=== PATIENT | male | born 1960 | race Two or more races ===

== ENCOUNTER 2017-03-07 09:35 | Emergency (ER) | payer OTHER ==
[2017-03-07 10:03] VITALS: BP 145/74; PULSE 60; TEMP 98.2; BMI 28.3
--- NOTE | 2017-03-07 11:37 | PDOC ---
History of Present Illness - General Chief Complaint: Pain Stated Complaint: INJURY Time Seen by Provider: 03/07/17 10:06 History Source: Patient Exam Limitations: No Limitations - History of Present Illness Initial Comments: 03/07/17 11:32 CHIEF COMPLAINT: Inversion injury to the right ankle HISTORY OF PRESENT ILLNESS: Patient is a 56-year-old male, no significant medical history currently on no medication. Patient presents with inversion injury to right ankle. Able to ambulate, no edema, no deformity. Occurred: reports: just prior to arrival Severity: Yes: mild Lower Extremity Pain Location: right: ankle Method of Injury: Yes: twisted Modifying Factors: improves with: None Lower Ext. Injury Location - Specific Injury Location Ankle: right pain, right swelling Extremity Pain Location - Extremity Pain Location Extremity Pain Locations: right: ankle Past History - Past Medical History Allergies/Adverse Reactions: Allergies Allergy/AdvReac Type Severity Reaction Status Date / Time ranitidine HCl [From Zantac] Allergy Swelling Verified 03/07/17 10:03 Home Medications: Ambulatory Orders Amlodipine 10/Benazepril 20 [Lotrel (Nf)] 1 mg PO DAILY 05/30/12 Insulin Lispro Protamin/Lispro [Humalog Mix 50-50 Kwikpen] 45 unit SQ BID Metformin HCl [Glucophage -] 500 mg PO DAILY 05/30/12 Aspirin 81 mg PO DAILY 01/09/13 Colesevelam HCl [Welchol] 625 mg PO BID 01/09/13 Fenofibrate Nanocrystallized [Tricor] 145 mg PO DAILY 01/09/13 Fosinopril Sodium [Monopril] 50 mg PO DAILY 01/09/13 Vitamin B Complex 1 each PO DAILY 01/09/13 Naproxen [Naprosyn -] 500 mg PO BID #20 tablet 04/08/16 Anemia: No Asthma: No Cancer: No Cardiac Disorders: No CVA: No COPD: No CHF: No Dementia: Yes Diabetes: Yes (IDDM) GI Disorders: Yes (GERD) Disorders: No HTN: Yes Hypercholesterolemia: Yes Liver Disease: No Seizures: Yes (1993, 1995 DUE TO ALCOHOL DRINKING) Thyroid Disease: No - Surgical History Orthopedic Surgery: Yes (FRACTURED COLLAR BONE, FITO ANKLE FRACTURE) - Psycho/Social/Smoking Cessation Hx Anxiety: No Suicidal Ideation: No Smoking Status: Yes Smoking History: Former smoker Have you smoked in the past 12 months: No Number of Cigarettes Smoked Daily: 0 If you are a former smoker, when did you quit?: 15yrs Information on smoking cessation initiated: No 'Breaking Loose' booklet given: 01/09/13 Hx Alcohol Use: No Drug/Substance Use Hx: No Substance Use Type: None Hx Substance Use Treatment: No Review of Systems - Review of Systems Constitutional: No: Symptoms Reported Respiratory: No: Symptoms reported Cardiac (ROS): No: Symptoms Reported ABD/GI: No: Symptoms Reported : No: Symptoms Reported Musculoskeletal: Yes: Joint Pain. No: Joint Swelling, Muscle Pain, Muscle Weakness, Joint Stiffness, Other Integumentary: No: Symptoms Reported, Bruising, Erythema Neurological: No: Symptoms reported, Paresthesia, Tingling, Tremors Hematologic/Lymphatic: No: Symptoms Reported All Other Systems: Reviewed and Negative *Physical Exam - Vital Signs Last Vital Signs Temp Pulse Resp BP Pulse Ox 98.2 F 60 18 145/74 99 03/07/17 09:58 03/07/17 09:58 03/07/17 09:58 03/07/17 09:58 03/07/17 09:58 - Physical Exam General Appearance: Yes: Appropriately Dressed. No: Apparent Distress Respiratory/Chest: positive: Lungs Clear, Normal Breath Sounds Extremity: positive: Normal Capillary Refill, Normal Inspection, Normal Range of Motion, Tender (right lateral ankle). negative: Swelling, Erythema, Inflammation Integumentary: positive: Normal Color, Dry. negative: Erythema, Swelling, Ecchymosis, Bruising Neurologic: positive: Alert, Normal Mood/Affect ED Treatment Course - RADIOLOGY Radiology Studies Ordered: Category Date Time Status ANKLE-RIGHT [RAD] Stat Radiology 03/07/17 10:33 Completed Medical Decision Making - Medical Decision Making 03/07/17 11:36 A/P: Patient with inversion injury to right ankle. Xray no acute fracture dislocation Nick wrap placed on ice and elevate when at rest, Motrin for pain. orthopedics in one week if pain persists 03/07/17 14:27 *DC/Admit/Observation/Transfer Diagnosis at time of Disposition: Ankle sprain Qualifiers: Encounter type: initial encounter Involved ligament of ankle: unspecified ligament Laterality: right Qualified Code(s): S93.401A - Sprain of unspecified ligament of right ankle, initial encounter - Discharge Dispostion Disposition: HOME Condition at time of disposition: Good Admit: No - Referrals Referrals: Sha Morgan MD [Primary Care Provider] - - Patient Instructions Printed Discharge Instructions: DI for Ankle Sprain Additional Instructions: 1. Please return to the emergency department with any redness, swelling, increased pain, or any other concerns. 2. Keep nick wrap on. 3. Please follow up in the office of Dr. Yin within a week if pain persists. 4. No weightbearing 5. Ice and elevate when at rest. 6. Motrin for pain - Post Discharge Activity
== END 2017-03-07 11:48 | disposition home or self-care (01) ==
LOC: JERFT 09:35
DX: S93.401A Sprain of unspecified ligament of right ankle, initial encounter (principal); X50.1XXA Overexertion from prolonged static or awkward postures, initial encounter; Y93.89 Activity, other specified; Y92.89 Other specified places as the place of occurrence of the external cause; I10 Essential (primary) hypertension; E11.9 Type 2 diabetes mellitus without complications; E78.00 Pure hypercholesterolemia, unspecified; Z86.69 Personal history of other diseases of the nervous system and sense organs
CPT/HCPCS: 73610-TC-RT; 99281-25

== ENCOUNTER 2017-08-18 09:35 | Emergency (ER) | payer OTHER ==
[2017-08-18 09:55] VITALS: BP 138/74; PULSE 60; TEMP 98.6; BMI 26.1
[2017-08-18] MEDS ORDERED: KETOROLAC TROMETHAMINE 60 MG/2 ML VIAL IM ONE (10:32)
--- NOTE | 2017-08-18 10:39 | PDOC ---
History of Present Illness - General Chief Complaint: Back Pain Stated Complaint: BACK PAIN Time Seen by Provider: 08/18/17 10:22 History Source: Patient Exam Limitations: No Limitations - History of Present Illness Initial Comments: 08/18/17 10:32 57 yr male states he pulled his low back this AM shoveling snow. Pt denies abd pain denies history of back injury, no urine or bowel dysfucntion. Pt is ambualtiry steady gait no distress. Occurred: reports: this morning Severity: reports: moderate Pain Location: reports: back Past History - Past Medical History Allergies/Adverse Reactions: Allergies Allergy/AdvReac Type Severity Reaction Status Date / Time ranitidine HCl [From Zantac] Allergy Swelling Verified 08/18/17 09:50 Home Medications: Ambulatory Orders Amlodipine 10/Benazepril 20 [Lotrel (Nf)] 1 mg PO DAILY 05/30/12 Insulin Lispro Protamin/Lispro [Humalog Mix 50-50 Kwikpen] 45 unit SQ BID Metformin HCl [Glucophage -] 500 mg PO DAILY 05/30/12 Aspirin 81 mg PO DAILY 01/09/13 Colesevelam HCl [Welchol] 625 mg PO BID 01/09/13 Fenofibrate Nanocrystallized [Tricor] 145 mg PO DAILY 01/09/13 Fosinopril Sodium [Monopril] 50 mg PO DAILY 01/09/13 Vitamin B Complex 1 each PO DAILY 01/09/13 Cyclobenzaprine HCl [Flexeril -] 10 mg PO TID PRN #21 tablet 08/18/17 Ibuprofen 800 mg PO TID PRN #21 tablet 08/18/17 Lidocaine 5% Patch [Lidoderm -] 1 patch TP DAILY #4 patch 08/18/17 Anemia: No Asthma: No Cancer: No Cardiac Disorders: No CVA: No COPD: No CHF: No Dementia: Yes Diabetes: Yes (IDDM) GI Disorders: Yes (GERD) Disorders: No HTN: Yes Hypercholesterolemia: Yes Liver Disease: No Seizures: Yes (1993, 1995 DUE TO ALCOHOL DRINKING) Thyroid Disease: No - Surgical History Orthopedic Surgery: Yes (FRACTURED COLLAR BONE, FITO ANKLE FRACTURE) - Suicide/Smoking/Psychosocial Hx Smoking Status: Yes Smoking History: Former smoker Have you smoked in the past 12 months: No Number of Cigarettes Smoked Daily: 0 If you are a former smoker, when did you quit?: 15yrs Information on smoking cessation initiated: No 'Breaking Loose' booklet given: 01/09/13 Hx Alcohol Use: No Drug/Substance Use Hx: No Substance Use Type: None Hx Substance Use Treatment: No Trauma Specific PMHX - Complaint Specific PMHX Back Injury: No Neck Injury: No *Physical Exam - Vital Signs Last Vital Signs Temp Pulse Resp BP Pulse Ox 98.6 F 60 19 138/74 98 08/18/17 09:51 08/18/17 09:51 08/18/17 09:51 08/18/17 09:51 08/18/17 09:51 - Physical Exam General Appearance: Yes: Nourished, Appropriately Dressed HEENT: positive: EOMI, ARISTIDES, Normal ENT Inspection, TMs Normal, Pharynx Normal Neck: positive: Supple Respiratory/Chest: positive: Lungs Clear, Normal Breath Sounds Cardiovascular: positive: Regular Rhythm, Regular Rate Gastrointestinal/Abdominal: positive: Normal Bowel Sounds, Soft. negative: Tender Rectal Exam: positive: deferred Lymphatic: negative: Adenopathy Musculoskeletal: positive: Normal Inspection, Other (soft tissue paralumbar tender to touch and with movement, no rash ). negative: Decreased Range of Motion, Muscle Spasm, Vertebral Tenderness Extremity: positive: Normal Capillary Refill, Normal Inspection, Normal Range of Motion Integumentary: positive: Normal Color, Dry, Warm Neurologic: positive: Fully Oriented, Alert, Normal Mood/Affect, Normal Response , Motor Strength 5/5, Other (neg SLR bilateraly) Medical Decision Making - Medical Decision Making 08/18/17 11:00 cc: acute low back pain while shoveling this am pain reproduced with movement, bending forward and sitting makes it worse no saddle anesthesia, neg urine or bowel incontinence will give toradol now dc home with strict follow up with the orthopedist and PMD flexeril and ibuproifen for pain lidocaine patch prn pt agrees with plan of care all questions asked and answered at discharge 08/18/17 16:42 *DC/Admit/Observation/Transfer Diagnosis at time of Disposition: Back pain due to injury - Discharge Dispostion Disposition: HOME Condition at time of disposition: Good - Prescriptions Prescriptions: Cyclobenzaprine HCl [Flexeril -] 10 mg PO TID PRN #21 tablet PRN Reason: Back Pain Ibuprofen 800 mg PO TID PRN #21 tablet PRN Reason: Back Pain Lidocaine 5% Patch [Lidoderm -] 1 patch TP DAILY #4 patch - Referrals Referrals: Parth Perry MD [Primary Care Provider] - Chapin Yin MD [Staff Physician] - - Patient Instructions Additional Instructions: follow with the orthopedist next week for follow up if symptoms continue or woren please make a follow up appointment with your primary care in 1-3 days take the medciations as prescribed no heavy lifting or shoveling RETURN to ER for any worsening symptoms - Post Discharge Activity
[2017-08-18] MEDS ORDERED: DEXAMETHASONE SOD PHOSPHATE 10 MG/1 ML VIAL IM ONE (10:58)
== END 2017-08-18 11:31 | disposition home or self-care (01) ==
LOC: JERFT 09:35
PROC: 3E0233Z Introduction of Anti-inflammatory into Muscle, Percutaneous Approach (ICD-10-PCS; principal; 2017-08-18)
DX: M54.5 Low back pain (principal); X50.0XXA Overexertion from strenuous movement or load, initial encounter; Y93.H1 Activity, digging, shoveling and raking; Y92.414 Local residential or business street as the place of occurrence of the external cause; E11.9 Type 2 diabetes mellitus without complications; Z79.4 Long term (current) use of insulin; Z79.84 Long term (current) use of oral hypoglycemic drugs; I10 Essential (primary) hypertension; E78.00 Pure hypercholesterolemia, unspecified
CPT/HCPCS: 99281-25

== ENCOUNTER 2018-05-11 12:28 | Emergency (ER) | payer OTHER ==
[2018-05-11 12:37] VITALS: BP 139/63; PULSE 65; TEMP 97.8; BMI 28.3
[2018-05-11] MEDS ORDERED: ACETAMINOPHEN 325 MG TABLET (FP) PO ONE (13:09)
--- NOTE | 2018-05-11 13:10 | PDOC ---
History of Present Illness - General Chief Complaint: Injury Stated Complaint: INJURY Time Seen by Provider: 05/11/18 13:01 History Source: Patient Exam Limitations: No Limitations Past History - Travel Traveled outside of the country in the last 30 days: No Close contact w/someone who was outside of country & ill: No - Past Medical History Allergies/Adverse Reactions: Allergies Allergy/AdvReac Type Severity Reaction Status Date / Time ranitidine HCl [From Zantac] Allergy Swelling Verified 05/11/18 12:35 Home Medications: Ambulatory Orders Amlodipine 10/Benazepril 20 [Lotrel (Nf)] 1 mg PO DAILY 05/30/12 Insulin Lispro Protamin/Lispro [Humalog Mix 50-50 Kwikpen] 45 unit SQ BID metFORMIN HCL [Glucophage -] 500 mg PO DAILY 05/30/12 Aspirin 81 mg PO DAILY 01/09/13 Colesevelam HCl [Welchol] 625 mg PO BID 01/09/13 Fenofibrate Nanocrystallized [Tricor] 145 mg PO DAILY 01/09/13 Fosinopril Sodium [Monopril] 50 mg PO DAILY 01/09/13 Vitamin B Complex 1 each PO DAILY 01/09/13 Anemia: No Asthma: No Cancer: No Cardiac Disorders: No CVA: No COPD: No CHF: No Dementia: Yes Diabetes: Yes (IDDM) GI Disorders: Yes (GERD) Disorders: No HTN: Yes Hypercholesterolemia: Yes Liver Disease: No Seizures: Yes (1993, 1995 DUE TO ALCOHOL DRINKING) Thyroid Disease: No - Surgical History Orthopedic Surgery: Yes (FRACTURED COLLAR BONE, FITO ANKLE FRACTURE) - Suicide/Smoking/Psychosocial Hx Smoking Status: Yes Smoking History: Former smoker Have you smoked in the past 12 months: No Number of Cigarettes Smoked Daily: 0 If you are a former smoker, when did you quit?: 15yrs Information on smoking cessation initiated: No 'Breaking Loose' booklet given: 01/09/13 Hx Alcohol Use: No Drug/Substance Use Hx: No Substance Use Type: None Hx Substance Use Treatment: No Review of Systems - Review of Systems Able to Perform ROS?: Yes Comments:: 05/11/18 13:08 CONSTITUTIONAL: Absent: fever, chills, diaphoresis, generalized weakness, malaise, loss of appetite HEENT: Absent: rhinorrhea, nasal congestion, throat pain, throat swelling, difficulty swallowing, mouth swelling, ear pain, eye pain, visual Changes CARDIOVASCULAR: Absent: chest pain, loss of consciousness, palpitations, irregular heart rate, peripheral edema RESPIRATORY: Absent: cough, shortness of breath, dyspnea with exertion, orthopnea, wheezing, stridor, hemoptysis GASTROINTESTINAL: Absent: abdominal pain, abdominal distension, nausea, vomiting, diarrhea, constipation, melena, hematochezia GENITOURINARY: Absent: dysuria, frequency, urgency, hesitancy, hematuria, flank pain, genital pain MUSCULOSKELETAL: Absent: myalgia, arthralgia, joint swelling SKIN: Absent: rash, itching, pallor HEMATOLOGIC/IMMUNOLOGIC: Absent: easy bleeding, easy bruising, lymphadenopathy, frequent infections ENDOCRINE: Absent: unexplained weight gain, unexplained weight loss, heat intolerance, cold intolerance NEUROLOGIC: Absent: headache, focal weakness or paresthesias, dizziness, unsteady gait, seizure, mental status changes, bladder or bowel incontinence PSYCHIATRIC: Absent: anxiety, depression, suicidal or homicidal ideation, hallucinations. Is the patient limited Croatian proficient: No *Physical Exam - Vital Signs Last Vital Signs Temp Pulse Resp BP Pulse Ox 97.8 F 65 18 139/63 99 05/11/18 12:35 05/11/18 12:35 05/11/18 12:35 05/11/18 12:35 05/11/18 12:35 - Physical Exam Comments: 05/11/18 13:09 GENERAL: Well developed, well nourished. Awake and alert. No acute distress. HEENT: Normocephalic, atraumatic. PERRLA, EOMI. No conjunctival pallor. Sclera are non- icteric. Moist mucous membranes. Oropharynx is clear. NECK: Supple. Full ROM. No JVD. Carotid pulses 2+ and symmetric, without bruits. No thyromegaly. No lymphadenopathy. CARDIOVASCULAR: Regular rate and rhythm. No murmurs, rubs, or gallops. Distal pulses are 2+ and symmetric. PULMONARY: No evidence of respiratory distress. Lungs clear to auscultation bilaterally. No wheezing, rales or rhonchi. ABDOMINAL: Soft. Non-tender. Non-distended. No rebound or guarding. No organomegaly. Normoactive bowel sounds. MUSCULOSKELETAL Normal range of motion at all joints. No bony deformities or tenderness. No CVA tenderness. EXTREMITIES: No cyanosis. No clubbing. No edema. No calf tenderness. SKIN: Warm and dry. Normal capillary refill. No rashes. No jaundice. NEUROLOGICAL: Alert, awake, appropriate. Cranial nerves 2-12 intact. No deficits to light touch and temperature in face, upper extremities and lower extremities. No motor deficits in the in face, upper extremities and lower extremities. Normoreflexic in the upper and lower extremities. Normal speech. Toes are down- going bilaterally. Gait is normal without ataxia. PSYCHIATRIC: Cooperative. Good eye contact. Appropriate mood and affect. *DC/Admit/Observation/Transfer Diagnosis at time of Disposition: Knee pain, right Qualifiers: Chronicity: acute Qualified Code(s): M25.561 - Pain in right knee - Discharge Dispostion Disposition: HOME Condition at time of disposition: Stable Decision to Admit order: No - Referrals Referrals: Aparna Mckeon MD [Primary Care Provider] - Chapin Yin MD [Staff Physician] - - Patient Instructions Printed Discharge Instructions: DI for Knee Pain Additional Instructions: You fell up the stairs and hurt your R knee Your x-ray is negative for fracture You may apply ice to the area for 20 minute intervals to help with the pain You may take Tylenol 650mg every 4 hours as needed for pain Follow up with orthopedics in 3-5 days if your symptoms do not improve Return to the ED if you have any new or worsening symptoms. - Post Discharge Activity
[2018-05-11] MEDS ORDERED: ACETAMINOPHEN 325 MG TABLET (FP) ONE (13:12)
== END 2018-05-11 14:22 | disposition home or self-care (01) ==
LOC: JERFT 12:28
DX: M25.561 Pain in right knee (principal); W10.8XXA Fall (on) (from) other stairs and steps, initial encounter; Y93.89 Activity, other specified; Y92.89 Other specified places as the place of occurrence of the external cause; Y99.8 Other external cause status; I10 Essential (primary) hypertension; E11.9 Type 2 diabetes mellitus without complications; Z79.4 Long term (current) use of insulin; E78.00 Pure hypercholesterolemia, unspecified; K21.9 Gastro-esophageal reflux disease without esophagitis; F03.90 Unspecified dementia, unspecified severity, without behavioral disturbance, psychotic disturbance, mood disturbance, and anxiety; Z86.69 Personal history of other diseases of the nervous system and sense organs
CPT/HCPCS: 73560-TC-RT-FY; 99281-25

== ENCOUNTER 2018-09-18 07:05 | Emergency (ER) | payer OTHER ==
[2018-09-18 07:41] VITALS: BP 129/59; PULSE 62; TEMP 98.5; BMI 29.1
[2018-09-18] MEDS ORDERED: KETOROLAC TROMETHAMINE 60 MG/2 ML VIAL IM ONE (07:46)
[2018-09-18] MEDS ORDERED: CYCLOBENZAPRINE HCL 10 MG TABLET (FP) PO ONE (07:46)
--- NOTE | 2018-09-18 07:52 | PDOC ---
History of Present Illness - General Chief Complaint: Back Pain Stated Complaint: BACK INJURY Time Seen by Provider: 09/18/18 07:46 History Source: Patient Exam Limitations: No Limitations - History of Present Illness Initial Comments: 09/18/18 08:14 58 y/o male presents to the ED with c/o low back pain while doing trapezius pulldown down in the gym prior to arrival. Pt states hx of lumbar stenosis and denies worsening s/s from previous episodes. Occurred: reports: just prior to arrival Severity: reports: mild Pain Location: reports: back Method of Injury: Yes: other Loss of Consciousness: no loss of consciousness Associated Symptoms (Fall): muscle spasms Past History - Travel Traveled outside of the country in the last 30 days: No Close contact w/someone who was outside of country & ill: No - Past Medical History Allergies/Adverse Reactions: Allergies Allergy/AdvReac Type Severity Reaction Status Date / Time ranitidine HCl [From Zantac] Allergy Swelling Verified 09/18/18 07:38 Home Medications: Ambulatory Orders Amlodipine 10/Benazepril 20 [Lotrel (Nf)] 1 mg PO DAILY 05/30/12 Insulin Lispro Protamin/Lispro [Humalog Mix 50-50 Kwikpen] 45 unit SQ BID metFORMIN HCL [Glucophage -] 500 mg PO DAILY 05/30/12 Aspirin 81 mg PO DAILY 01/09/13 Colesevelam HCl [Welchol] 625 mg PO BID 01/09/13 Fenofibrate Nanocrystallized [Tricor] 145 mg PO DAILY 01/09/13 Fosinopril Sodium [Monopril] 50 mg PO DAILY 01/09/13 Vitamin B Complex 1 each PO DAILY 01/09/13 Cyclobenzaprine HCl [Flexeril -] 5 mg PO TID PRN #12 tablet 09/18/18 Ibuprofen [Motrin -] 600 mg PO TID PRN #21 tablet 09/18/18 Anemia: No Asthma: No Cancer: No Cardiac Disorders: No CVA: No COPD: No CHF: No Dementia: Yes Diabetes: Yes (IDDM) GI Disorders: Yes (GERD) Disorders: No HTN: Yes Hypercholesterolemia: Yes Liver Disease: No Seizures: Yes (1993, 1995 DUE TO ALCOHOL DRINKING) Thyroid Disease: No - Surgical History Orthopedic Surgery: Yes (FRACTURED COLLAR BONE, FITO ANKLE FRACTURE) - Suicide/Smoking/Psychosocial Hx Smoking Status: Yes Smoking History: Never smoked Have you smoked in the past 12 months: No Number of Cigarettes Smoked Daily: 0 If you are a former smoker, when did you quit?: 15yrs 'Breaking Loose' booklet given: 01/09/13 Hx Alcohol Use: No Drug/Substance Use Hx: No Substance Use Type: None Hx Substance Use Treatment: No Patient Lives Alone: No Lives with/in: spouse/SO Trauma Specific PMHX - Complaint Specific PMHX Back Injury: Yes Neck Injury: No Review of Systems - Review of Systems Able to Perform ROS?: No Is the patient limited Arabic proficient: No Constitutional: No: Symptoms Reported HEENTM: No: Symptoms Reported ABD/GI: No: Symptoms Reported Musculoskeletal: Yes: Muscle Pain Integumentary: No: Symptoms Reported Neurological: No: Symptoms reported *Physical Exam - Vital Signs Last Vital Signs Temp Pulse Resp BP Pulse Ox 98.5 F 62 19 129/59 L 95 09/18/18 07:38 09/18/18 07:38 09/18/18 07:38 09/18/18 07:38 09/18/18 07:38 - Physical Exam General Appearance: Yes: Nourished, Appropriately Dressed. No: Apparent Distress Neck: positive: Supple. negative: Decreased range of motion, Tender lateral, Tender midline Gastrointestinal/Abdominal: positive: Soft. negative: Tenderness Musculoskeletal: positive: Muscle Spasm (lumbar at l3-4 level bilateral), Vertebral Tenderness (no midline tenderness) Integumentary: positive: Normal Color, Warm, Moist Neurologic: positive: Motor Strength 5/5 (ambulatory), Other (intact straight leg raise fito) Moderate Sedation - Procedure Monitoring Vital Signs: Procedure Monitoring Vital Signs Temperature 98.5 F 09/18/18 07:38 Pulse Rate 62 09/18/18 07:38 Respiratory Rate 19 09/18/18 07:38 Blood Pressure 129/59 L 09/18/18 07:38 O2 Sat by Pulse Oximetry (%) 95 09/18/18 07:38 Medical Decision Making - Medical Decision Making 09/18/18 08:17 CC: LBP since working out this am Exam: no midline tenderness, no lower extremity weakness Plan: Motrin and flexeril. Discharge home with the same *DC/Admit/Observation/Transfer Diagnosis at time of Disposition: Low back pain - Discharge Dispostion Disposition: HOME Condition at time of disposition: Improved - Prescriptions Prescriptions: Cyclobenzaprine HCl [Flexeril -] 5 mg PO TID PRN #12 tablet PRN Reason: Back Pain Ibuprofen [Motrin -] 600 mg PO TID PRN #21 tablet PRN Reason: Pain - Referrals Referrals: Sha Morgan MD [Primary Care Provider] - - Patient Instructions Printed Discharge Instructions: DI for Low Back Pain Additional Instructions: Please take medication as prescribed. Avoid movement which trigger pain. Apply heat to affected area - Post Discharge Activity
[2018-09-18] MEDS ORDERED: IBUPROFEN 600 MG TABLET (FP) PO ONE ×2 (07:57→08:00)
[2018-09-18] MEDS ORDERED: KETOROLAC TROMETHAMINE 60 MG/2 ML VIAL ONE (07:59)
[2018-09-18] MEDS ORDERED: CYCLOBENZAPRINE HCL 10 MG TABLET (FP) ONE (07:59)
== END 2018-09-18 08:35 | disposition home or self-care (01) ==
LOC: JER 07:05
DX: M54.5 Low back pain (principal); X50.0XXA Overexertion from strenuous movement or load, initial encounter; Y93.B9 Activity, other involving muscle strengthening exercises; Y92.39 Other specified sports and athletic area as the place of occurrence of the external cause; Y99.8 Other external cause status; I10 Essential (primary) hypertension; E78.00 Pure hypercholesterolemia, unspecified; E11.9 Type 2 diabetes mellitus without complications; Z79.4 Long term (current) use of insulin; K21.9 Gastro-esophageal reflux disease without esophagitis; F03.90 Unspecified dementia, unspecified severity, without behavioral disturbance, psychotic disturbance, mood disturbance, and anxiety; Z86.69 Personal history of other diseases of the nervous system and sense organs
CPT/HCPCS: 99283-25

== ENCOUNTER 2019-01-31 08:18 | Emergency (ER) | payer OTHER ==
[2019-01-31 08:29] VITALS: BP 105/75; PULSE 71; TEMP 97.8; BMI 28.7
--- NOTE | 2019-01-31 08:37 | PDOC ---
History of Present Illness - General Chief Complaint: Pain Stated Complaint: INJURY Time Seen by Provider: 01/31/19 08:33 History Source: Patient Exam Limitations: Clinical Condition - History of Present Illness Initial Comments: 01/31/19 09:02 Patient with no significant past medical history present with complaint of right lateral ankle pain status post twisting her ankle in the curbside 2 hours ago. Patient reported 8 out of 10 pain to lateral aspect of right ankle with mild swelling. Reported increased pain with ambulation. Denies fall or any other symptoms Timing/Duration: 1-3 hours Past History - Past Medical History Allergies/Adverse Reactions: Allergies Allergy/AdvReac Type Severity Reaction Status Date / Time ranitidine HCl [From Zantac] Allergy Swelling Verified 01/31/19 08:25 Home Medications: Ambulatory Orders Amlodipine 10/Benazepril 20 [Lotrel (Nf)] 1 mg PO DAILY 05/30/12 Insulin Lispro Protamin/Lispro [Humalog Mix 50-50 Kwikpen] 45 unit SQ BID metFORMIN HCL [Glucophage -] 500 mg PO DAILY 05/30/12 Aspirin 81 mg PO DAILY 01/09/13 Colesevelam HCl [Welchol] 625 mg PO BID 01/09/13 Fenofibrate Nanocrystallized [Tricor] 145 mg PO DAILY 01/09/13 Fosinopril Sodium [Monopril] 50 mg PO DAILY 01/09/13 Vitamin B Complex 1 each PO DAILY 01/09/13 Cyclobenzaprine HCl [Flexeril -] 5 mg PO TID PRN #12 tablet 09/18/18 Ibuprofen [Motrin -] 600 mg PO TID PRN #21 tablet 09/18/18 Naproxen 500 mg PO BID PRN #20 tablet 01/31/19 Anemia: No Asthma: No Cancer: No Cardiac Disorders: No CVA: No COPD: No CHF: No Dementia: Yes Diabetes: Yes (IDDM) GI Disorders: Yes (GERD) Disorders: No HTN: Yes Hypercholesterolemia: Yes Liver Disease: No Seizures: Yes (1993, 1995 DUE TO ALCOHOL DRINKING) Thyroid Disease: No - Surgical History Orthopedic Surgery: Yes (FRACTURED COLLAR BONE, FITO ANKLE FRACTURE) - Suicide/Smoking/Psychosocial Hx Smoking Status: Yes Smoking History: Former smoker Have you smoked in the past 12 months: No Number of Cigarettes Smoked Daily: 0 If you are a former smoker, when did you quit?: 1999 Information on smoking cessation initiated: No 'Breaking Loose' booklet given: 01/09/13 Hx Alcohol Use: No Drug/Substance Use Hx: No Substance Use Type: None Hx Substance Use Treatment: No Review of Systems - Review of Systems Able to Perform ROS?: Yes Is the patient limited French proficient: No Constitutional: No: Weakness HEENTM: No: Symptoms Reported Respiratory: No: Symptoms reported Cardiac (ROS): No: Symptoms Reported Musculoskeletal: Yes: Symptoms Reported, See HPI, Joint Pain (right ankle), Joint Swelling (right ankle), Muscle Pain. No: Muscle Weakness Neurological: No: Numbness, Paresthesia, Tingling All Other Systems: Reviewed and Negative *Physical Exam - Vital Signs Last Vital Signs Temp Pulse Resp BP Pulse Ox 97.8 F 71 18 105/75 100 01/31/19 08:25 01/31/19 08:25 01/31/19 08:25 01/31/19 08:25 01/31/19 08:25 - Physical Exam Comments: 01/31/19 08:35 GENERAL: Well developed, well nourished. Awake and alert in mild acute distress. CARDIOVASCULAR: Regular rate and rhythm. No murmurs, rubs, or gallops. PULMONARY: No evidence of respiratory distress. MUSCULOSKELETAL : mild swelling to lateral malleolus of right ankle with moderate tenderness over lateral malleolus of right ankle. No swelling or pain to medial side of dorsal foot or ankle. Negative anterior posterior drawer tests. SKIN: Warm and dry. Normal capillary refill. NEUROLOGICAL: Alert, awake, appropriate. No motor deficits in the lower extremities. Gait is normal without ataxia. PSYCHIATRIC: Cooperative. Good eye contact. Appropriate mood and affect. General Appearance: Yes: Nourished, Appropriately Dressed, Mild Distress ED Treatment Course - RADIOLOGY Radiology Studies Ordered: Category Date Time Status ANKLE & FOOT-RIGHT* [RAD] Stat Radiology 01/31/19 08:34 Ordered Medical Decision Making - Medical Decision Making 01/31/19 09:03 Patient with no significant past medical history present with complaint of right lateral ankle pain status post twisting her ankle in the curbside 2 hours ago. Patient reported 8 out of 10 pain to lateral aspect of right ankle with mild swelling. Reported increased pain with ambulation. Denies fall or any other symptoms Exam significant for mild swelling to lateral malleolus of right ankle with moderate tenderness over lateral malleolus of right ankle. No swelling or pain to medial side of dorsal foot or ankle. Negative anterior posterior drawer tests. X-ray of right ankle and foot shows no acute pathology Symptoms likely ankle sprain. Right ankle wrapped with Nick bandage. Ibuprofen 800 mg by mouth ordered for pain. Patient is stable for discharge on naproxen when necessary for pain with advised to do cold compress x-ray to hot compresses tomorrow for swelling. Patient stable for discharge *DC/Admit/Observation/Transfer Diagnosis at time of Disposition: Ankle sprain Qualifiers: Encounter type: initial encounter Involved ligament of ankle: unspecified ligament Laterality: right Qualified Code(s): S93.401A - Sprain of unspecified ligament of right ankle, initial encounter - Discharge Dispostion Disposition: HOME Condition at time of disposition: Stable Decision to Admit order: No - Prescriptions Prescriptions: Naproxen 500 mg PO BID PRN #20 tablet PRN Reason: ankle pain - Referrals Referrals: Nathen Larson DO [Staff Physician] - - Patient Instructions Printed Discharge Instructions: DI for Ankle Sprain Additional Instructions: Your x-ray of ankle and foot was normal. Symptoms likely ankle sprain. Use provided Nick bandage as needed for sprain. Apply cold compress to ankle as needed for swelling and switch to hot compresses tomorrow if swelling. Keep leg elevated for the next 24 hours. Take prescribed medication as needed for pain. Follow-up referred orthopedics if no improvement in 4 days - Post Discharge Activity
[2019-01-31] MEDS ORDERED: IBUPROFEN 400 MG TABLET (FP) PO ONE ×2 (08:58→09:00)
== END 2019-01-31 09:10 | disposition home or self-care (01) ==
LOC: JERFT 08:18
DX: S93.401A Sprain of unspecified ligament of right ankle, initial encounter (principal); X50.1XXA Overexertion from prolonged static or awkward postures, initial encounter; Y93.89 Activity, other specified; Y92.480 Sidewalk as the place of occurrence of the external cause; Y99.8 Other external cause status; I10 Essential (primary) hypertension; E11.9 Type 2 diabetes mellitus without complications; Z79.4 Long term (current) use of insulin; E78.00 Pure hypercholesterolemia, unspecified; K21.9 Gastro-esophageal reflux disease without esophagitis; Z86.69 Personal history of other diseases of the nervous system and sense organs; Z87.891 Personal history of nicotine dependence
CPT/HCPCS: 73610-TC-RT-FY; 73630-TC-RT-FY; 99281-25

== ENCOUNTER 2019-04-25 09:05 | Emergency (ER) | payer OTHER ==
[2019-04-25 09:16] VITALS: BP 138/63; PULSE 66; TEMP 98.2; BMI 29.7
--- NOTE | 2019-04-25 09:28 | PDOC ---
History of Present Illness - General Chief Complaint: Pain, Acute Stated Complaint: RT. ARM PAIN Time Seen by Provider: 04/25/19 09:19 History Source: Patient Exam Limitations: No Limitations - History of Present Illness Initial Comments: 04/25/19 09:20 was pulling things out of car and fel sudden onset of pain to right shoulder . Denies numbness or tingling to hand, denies bone pain, states pain is primarily to the upper back. 04/25/19 09:55 Occurred: reports: just prior to arrival, this morning Severity: reports: mild, moderate Pain Location: reports: back, neck Modifying Factors: improves with: None Loss of Consciousness: no loss of consciousness Associated Symptoms (Fall): denies symptoms Past History - Travel Traveled outside of the country in the last 30 days: No Close contact w/someone who was outside of country & ill: No - Past Medical History Allergies/Adverse Reactions: Allergies Allergy/AdvReac Type Severity Reaction Status Date / Time ranitidine HCl [From Zantac] Allergy Swelling Verified 04/25/19 09:14 Home Medications: Ambulatory Orders Amlodipine 10/Benazepril 20 [Lotrel (Nf)] 1 mg PO DAILY 05/30/12 Insulin Lispro Protamin/Lispro [Humalog Mix 50-50 Kwikpen] 45 unit SQ BID metFORMIN HCL [Glucophage -] 500 mg PO DAILY 05/30/12 Aspirin 81 mg PO DAILY 01/09/13 Colesevelam HCl [Welchol] 625 mg PO BID 01/09/13 Fenofibrate Nanocrystallized [Tricor] 145 mg PO DAILY 01/09/13 Fosinopril Sodium [Monopril] 50 mg PO DAILY 01/09/13 Vitamin B Complex 1 each PO DAILY 01/09/13 Cyclobenzaprine HCl [Flexeril -] 5 mg PO TID PRN #12 tablet 09/18/18 Ibuprofen [Motrin -] 600 mg PO TID PRN #21 tablet 09/18/18 Naproxen 500 mg PO BID PRN #20 tablet 01/31/19 Cyclobenzaprine HCl 10 mg PO Q8H PRN #14 tablet 04/25/19 Naproxen [Naprosyn -] 500 mg PO BID #30 tablet 04/25/19 Anemia: No Asthma: No Cancer: No Cardiac Disorders: No CVA: No COPD: No CHF: No Dementia: Yes Diabetes: Yes (IDDM) GI Disorders: Yes (GERD) Disorders: No HTN: Yes Hypercholesterolemia: Yes Liver Disease: No Seizures: Yes (1993, 1995 DUE TO ALCOHOL DRINKING) Thyroid Disease: No - Surgical History Orthopedic Surgery: Yes (FRACTURED COLLAR BONE, FITO ANKLE FRACTURE) - Immunization History Immunization Up to Date: Yes - Suicide/Smoking/Psychosocial Hx Smoking Status: Yes Smoking History: Never smoked Have you smoked in the past 12 months: No Number of Cigarettes Smoked Daily: 0 If you are a former smoker, when did you quit?: 1999 Information on smoking cessation initiated: No 'Breaking Loose' booklet given: 01/09/13 Hx Alcohol Use: No Drug/Substance Use Hx: No Substance Use Type: None Hx Substance Use Treatment: No Trauma Specific PMHX - Complaint Specific PMHX Back Injury: Yes Neck Injury: No Review of Systems - Review of Systems Able to Perform ROS?: Yes Is the patient limited Uzbek proficient: Yes Constitutional: Yes: Symptoms Reported, See HPI, Malaise. No: Fever HEENTM: Yes: See HPI. No: Symptoms Reported Respiratory: Yes: See HPI. No: Symptoms reported, Cough Musculoskeletal: Yes: Symptoms Reported Neurological: Yes: Symptoms reported *Physical Exam - Vital Signs Last Vital Signs Temp Pulse Resp BP Pulse Ox 98.2 F 66 17 138/63 97 04/25/19 09:14 04/25/19 09:14 04/25/19 09:14 04/25/19 09:14 04/25/19 09:14 - Physical Exam General Appearance: Yes: Nourished, Appropriately Dressed, Apparent Distress, Mild Distress HEENT: positive: ARISTIDES, Normal ENT Inspection, TMs Normal, Pharynx Normal, Nasal Congestion Neck: positive: Supple. negative: Tender Respiratory/Chest: positive: Chest Tender, Lungs Clear, Normal Breath Sounds Cardiovascular: positive: Regular Rate Gastrointestinal/Abdominal: positive: Tender, Soft Musculoskeletal: positive: Normal Inspection, Muscle Spasm (tender tight muscle ) Extremity: positive: Normal Capillary Refill, Normal Inspection, Tender. negative: Normal Range of Motion (limited ) Integumentary: positive: Normal Color, Dry Neurologic: positive: per diem physical therapist II-XII NML intact, Fully Oriented, Alert, Normal Mood/ Affect, Normal Response, Motor Strength 5/5 Progress Note - Progress Note Progress Note: shoulder strain- will treat with NSAIDS and Cyclobenzaprine *DC/Admit/Observation/Transfer Diagnosis at time of Disposition: Right shoulder strain - Discharge Dispostion Disposition: HOME Condition at time of disposition: Stable Decision to Admit order: No - Prescriptions Prescriptions: Cyclobenzaprine HCl 10 mg PO Q8H PRN #14 tablet PRN Reason: spasm Naproxen [Naprosyn -] 500 mg PO BID #30 tablet - Referrals - Patient Instructions Printed Discharge Instructions: DI for Shoulder Sprain Additional Instructions: Rest, no heavy lifting or exercise until pain is resolved Hot soaks to neck and low back as often as possible/hot showers or Jacuzzis No massage or therapy until spasm is gone Continue Naprosyn 500 mg tablet every 12 hours for the next 3 days then as needed for pain and swelling Cyclobenzaprine 1-10mg tab every 8 hours as needed for spasm If not significant improvement within 24 hours with medication and rest regime, followup with private physician for change in medications and /or therapy. - Post Discharge Activity Forms/Work/School Notes: Back to Work
[2019-04-25] MEDS ORDERED: IBUPROFEN 600 MG TABLET (FP) PO ONE (10:22)
== END 2019-04-25 09:58 | disposition home or self-care (01) ==
LOC: JERFT 09:05
DX: S46.811A Strain of other muscles, fascia and tendons at shoulder and upper arm level, right arm, initial encounter (principal); I10 Essential (primary) hypertension; E78.00 Pure hypercholesterolemia, unspecified; K21.9 Gastro-esophageal reflux disease without esophagitis; F03.90 Unspecified dementia, unspecified severity, without behavioral disturbance, psychotic disturbance, mood disturbance, and anxiety; Z86.69 Personal history of other diseases of the nervous system and sense organs; X50.9XXA Other and unspecified overexertion or strenuous movements or postures, initial encounter; Y93.89 Activity, other specified; Y92.89 Other specified places as the place of occurrence of the external cause; Y99.8 Other external cause status
CPT/HCPCS: 99282-25

== ENCOUNTER 2019-10-07 09:46 | Emergency (ER) | payer OTHER ==
[2019-10-07 10:03] VITALS: BP 137/68; PULSE 77; TEMP 97.8; BMI 30.1
--- NOTE | 2019-10-07 11:34 | PDOC ---
History of Present Illness - General Chief Complaint: Back Pain Stated Complaint: HURT BACK Time Seen by Provider: 10/07/19 11:03 - History of Present Illness Initial Comments: 10/07/19 11:32 59-year-old male with a past medical history of diabetes and hypertension presents for lower back pain without radicular symptoms loss of bowel or bladder function or systemic symptoms. Patient was lifting up a weight at the gym this morning when he felt an onset of lower back pain Past History - Past Medical History Allergies/Adverse Reactions: Allergies Allergy/AdvReac Type Severity Reaction Status Date / Time ranitidine HCl [From Zantac] Allergy Swelling Verified 04/25/19 09:14 Home Medications: Ambulatory Orders Amlodipine 10/Benazepril 20 [Lotrel (Nf)] 1 mg PO DAILY 05/30/12 Insulin Lispro Protamin/Lispro [Humalog Mix 50-50 Kwikpen] 45 unit SQ BID 05/30/12 metFORMIN HCL [Glucophage -] 500 mg PO DAILY 05/30/12 Aspirin 81 mg PO DAILY 01/09/13 Colesevelam HCl [Welchol] 625 mg PO BID 01/09/13 Fenofibrate Nanocrystallized [Tricor] 145 mg PO DAILY 01/09/13 Fosinopril Sodium [Monopril] 50 mg PO DAILY 01/09/13 Vitamin B Complex 1 each PO DAILY 01/09/13 Cyclobenzaprine HCl [Flexeril -] 5 mg PO TID PRN #12 tablet 09/18/18 Ibuprofen [Motrin -] 600 mg PO TID PRN #21 tablet 09/18/18 Naproxen 500 mg PO BID PRN #20 tablet 01/31/19 Cyclobenzaprine HCl 10 mg PO Q8H PRN #14 tablet 04/25/19 Naproxen [Naprosyn -] 500 mg PO BID #30 tablet 04/25/19 Cyclobenzaprine HCl [Flexeril 10 mg] 10 mg PO HS PRN #10 tablet 10/07/19 Anemia: No Asthma: No Cancer: No Cardiac Disorders: No CVA: No COPD: No CHF: No Dementia: Yes Diabetes: Yes (IDDM) GI Disorders: Yes (GERD) Disorders: No HTN: Yes Hypercholesterolemia: Yes Liver Disease: No Seizures: Yes (1993, 1995 DUE TO ALCOHOL DRINKING) Thyroid Disease: No - Surgical History Orthopedic Surgery: Yes (FRACTURED COLLAR BONE, FITO ANKLE FRACTURE) - Immunization History Immunization Up to Date: Yes - Psycho Social/Smoking Cessation Hx Smoking Status: Yes Smoking History: Never smoked Have you smoked in the past 12 months: No Number of Cigarettes Smoked Daily: 0 If you are a former smoker, when did you quit?: 1999 Information on smoking cessation initiated: No 'Breaking Loose' booklet given: 01/09/13 Hx Alcohol Use: No Drug/Substance Use Hx: No Substance Use Type: None Hx Substance Use Treatment: No Review of Systems - Review of Systems Musculoskeletal: Yes: Back Pain *Physical Exam - Vital Signs Last Vital Signs Temp Pulse Resp BP Pulse Ox 97.8 F 77 16 137/68 97 10/07/19 10:01 10/07/19 10:10/07/19 10:01 10/07/19 10:10/07/19 10:01 - Physical Exam 10/07/19 11:33 Lumbar spine skin color temperature normal range of motion is slightly decreased. No midline tenderness. Moderate bilateral paralumbar musculature spasm and tenderness 5 out of 5 strength bilateral lower extremities without gross sensorimotor deficits thighs and calves are soft and nontender neurovascular intact ED Treatment Course - RADIOLOGY Radiology Studies Ordered: Category Date Time Status SPINE-LUMBAR ONLY [RAD] Stat Radiology 10/07/19 11:08 Taken Medical Decision Making - Medical Decision Making 10/07/19 11:33 X-rays of the lumbar spine show no evidence of fracture trauma or destructive process. Mild L5-S1 to space narrowing straightening of the lumbar lordosis. Flexeril follow-up with orthopedic surgery Discharge - Discharge Information Problems reviewed: Yes Clinical Impression/Diagnosis: Low back pain Condition: Stable Disposition: HOME - Admission No - Additional Discharge Information Prescriptions: Cyclobenzaprine HCl [Flexeril 10 mg] 10 mg PO HS PRN #10 tablet PRN Reason: Muscle Spasms - Follow up/Referral Referrals: Sha Morgan MD [Primary Care Provider] - Nathen Larson DO [Staff Physician] - - Patient Discharge Instructions Additional Instructions: Return to the emergency room for worsening symptoms and without fail follow-up with orthopedic surgery in 2 to 3 days for further evaluation and treatment options. The Flexeril is a muscle relaxer and will make you sleepy. It was 1 tablet before bedtime. You may take Tylenol as directed for pain. Avoid anti-inflammatories such as Advil Motrin Aleve and ibuprofen - Post Discharge Activity
== END 2019-10-07 11:47 | disposition home or self-care (01) ==
LOC: JERFT 09:46
DX: M54.5 Low back pain (principal); I10 Essential (primary) hypertension; E11.9 Type 2 diabetes mellitus without complications; Z79.4 Long term (current) use of insulin; K21.9 Gastro-esophageal reflux disease without esophagitis; E78.00 Pure hypercholesterolemia, unspecified; Z86.69 Personal history of other diseases of the nervous system and sense organs
CPT/HCPCS: 72100-TC-FY; 99283-25

== ENCOUNTER 2020-03-03 09:50 | Emergency (ER) | payer OTHER ==
[2020-03-03 09:55] VITALS: BP 113/71; PULSE 69; TEMP 98.9; BMI 30.8
[2020-03-03] MEDS ORDERED: ACETAMINOPHEN 500 MG TABLET (FP) PO ONE (10:02)
[2020-03-03] MEDS ORDERED: ACETAMINOPHEN 500 MG TABLET (FP) ONE (10:03)
--- NOTE | 2020-03-03 10:04 | PDOC ---
History of Present Illness - General Chief Complaint: Injury Stated Complaint: FALL\RT ANKLE INJURY Time Seen by Provider: 03/03/20 09:59 History Source: Patient Exam Limitations: No Limitations - History of Present Illness Initial Comments: 03/03/20 10:03 Patient is a 59-year-old male with a history of hypertension and diabetes who presents to the ED with right ankle pain after an eversion injury while walking in the street. He states he stepped into a pothole and inverted his ankle. He denies hearing a pop or a snap. He has been able to walk on it since the injury. He denies any numbness or tingling. He has not taken anything for his pain. The patient denies any knee pain. Past History - Medical History Allergies/Adverse Reactions: Allergies Allergy/AdvReac Type Severity Reaction Status Date / Time ranitidine HCl [From Zantac] Allergy Swelling Verified 12/16/19 09:11 Home Medications: Ambulatory Orders Amlodipine 10/Benazepril 20 [Lotrel (Nf)] 1 mg PO DAILY 05/30/12 Insulin Lispro Protamin/Lispro [Humalog Mix 50-50 Kwikpen] 45 unit SQ BID 05/30/12 metFORMIN HCL [Glucophage -] 500 mg PO DAILY 05/30/12 Aspirin 81 mg PO DAILY 01/09/13 Colesevelam HCl [Welchol] 625 mg PO BID 01/09/13 Fenofibrate Nanocrystallized [Tricor] 145 mg PO DAILY 01/09/13 Fosinopril Sodium [Monopril] 50 mg PO DAILY 01/09/13 Vitamin B Complex 1 each PO DAILY 01/09/13 Cyclobenzaprine HCl [Flexeril -] 5 mg PO TID PRN #12 tablet 09/18/18 Ibuprofen [Motrin -] 600 mg PO TID PRN #21 tablet 09/18/18 Naproxen 500 mg PO BID PRN #20 tablet 01/31/19 Cyclobenzaprine HCl 10 mg PO Q8H PRN #14 tablet 04/25/19 Naproxen [Naprosyn -] 500 mg PO BID #30 tablet 04/25/19 Cyclobenzaprine HCl [Flexeril 10 mg] 10 mg PO HS PRN #10 tablet 10/07/19 Anemia: No Asthma: No Cancer: No Cardiac Disorders: No CVA: No COPD: No CHF: No Dementia: Yes Diabetes: Yes (IDDM) GI Disorders: Yes (GERD) Disorders: No HTN: Yes Hypercholesterolemia: Yes Liver Disease: No Seizures: Yes (1993, 1995 DUE TO ALCOHOL DRINKING) Thyroid Disease: No - Surgical History Orthopedic Surgery: Yes (FRACTURED COLLAR BONE, FITO ANKLE FRACTURE) - Immunization History Immunization Up to Date: Yes - Psycho-Social/Smoking History Smoking Status: Yes Smoking History: Never smoked Have you smoked in the past 12 months: No Number of Cigarettes Smoked Daily: 0 If you are a former smoker, when did you quit?: 1999 Information on smoking cessation initiated: No 'Breaking Loose' booklet given: 01/09/13 - Substance Abuse Hx (Audit-C & DAST Scrn) How often the patient has a drink containing alcohol: Never Score: In Men: 4 or > Positive; In Women: 3 or > Positive: 0 Screen Result (Pos requires Nsg. Audit-10AR): Negative In the last yr the pt used illegal drug/Rx for NonMed reason: No Score: Yes response is considered Positive: 0 Screen Result (Positive result requires Nsg. DAST-10): Negative Review of Systems - Review of Systems Comments:: 03/03/20 10:48 - Review of Systems Able to Perform ROS?: Yes Constitutional: No: Fever, Chills, Loss of Appetite, Night Sweats, Weakness HEENTM: No: Eye Pain, Vision changes, Ear Pain, Throat Pain, Throat Swelling, Mouth Pain, Difficulty Swallowing Respiratory: No: Cough, Shortness of Breath, Wheezing, Sputum Production Cardiac (ROS): No: Chest Pain, Chest Tightness, Palpitations, Irregular Heart Beat, Edema ABD/GI: No: Nausea, Vomiting, Abdominal Pain, Diarrhea : No Dysuria, No Hematuria, No Frequency, No Urgency Musculoskeletal: No: Muscle Pain, Back Pain, Muscle Weakness, Neck Pain; positive: Right ankle pain/eversion injury Integumentary: No: Lesions, Rash Neurological: No: Headache, Numbness, Tingling, Weakness, Speech Difficulties *Physical Exam - Vital Signs Last Vital Signs Temp Pulse Resp BP Pulse Ox 98.9 F 69 16 113/71 99 03/03/20 09:52 03/03/20 09:52 03/03/20 09:52 03/03/20 09:52 03/03/20 09:52 - Physical Exam 03/03/20 10:49 - Physical Exam General Appearance: Nourished, Appropriately Dressed, No Distress HEENT: EOMI, Normal Voice, Hearing Grossly Normal Neck: Supple, No Lymphadenopathy (R), No Lymphadenopathy (L), No Rigidity, No Decreased range of motion Respiratory/Chest: Lungs Clear, Normal Breath Sounds. No Respiratory Distress, No Accessory Muscle Use Cardiovascular: Regular Rhythm, Regular Rate, S1, S2 Musculoskeletal: Normal Inspection. No Decreased Range of Motion; right ankle with minimal tenderness to the posteromedial aspect and posterior lateral aspect to palpation. No bony tenderness to palpation. EHL intact. DP and PT pulses palpable. Sensation intact distally. Brisk capillary refill distally. No tenderness over the fifth metatarsal. Pain exacerbated with inversion and eversion stress. Extremity: Normal Capillary Refill, Normal Inspection Integumentary: Normal Color, Dry. No Rash Neurologic: medical sociologist II-XII NML intact, Fully Oriented, Alert, Normal Mood/Affect, Normal Response ED Treatment Course - RADIOLOGY Radiology Studies Ordered: Category Date Time Status ANKLE & FOOT-RIGHT* [RAD] Stat Radiology 03/03/20 10:02 Ordered Medical Decision Making - Medical Decision Making 03/03/20 10:50 Assessment: Patient is a 59-year-old male with a right ankle inversion injury just prior to arrival. Plan: -Tylenol ordered -Right foot and ankle x-ray performed and read by Dr. Connor is negative for acute pathology. -Patient has been made aware that he has a right ankle sprain and could weight- bear as tolerated. He can take Tylenol or ibuprofen for pain. He should ice and elevate his ankle. Since the patient has little pain with ambulation, splinting is not indicated at this time. Discharge - Discharge Information Problems reviewed: Yes Clinical Impression/Diagnosis: Right ankle sprain Qualifiers: Encounter type: initial encounter Involved ligament of ankle: other ligament Qualified Code(s): S93.491A - Sprain of other ligament of right ankle, initial encounter Condition: Stable Disposition: HOME - Follow up/Referral Referrals: Nathen Larson DO [Staff Physician] - - Patient Discharge Instructions Patient Printed Discharge Instructions: DI for Ankle Sprain Additional Instructions: Ice and elevate your ankle to help with swelling and pain. You can take Tylenol or ibuprofen for pain. You may weight-bear as tolerated on your right ankle. Follow-up with orthopedics if your pain does not resolve within the next few days. You should follow-up with your primary doctor within 1 to 2 days for repeat evaluation. - Post Discharge Activity Work/Back to School Note: Back to Work
== END 2020-03-03 11:14 | disposition home or self-care (01) ==
LOC: JERFT 09:50
DX: S93.491A Sprain of other ligament of right ankle, initial encounter (principal)
CPT/HCPCS: 73610-TC-RT-FY; 73630-TC-RT-FY; 99283-25

== ENCOUNTER 2020-08-28 12:09 | Emergency (ER) | payer OTHER ==
[2020-08-28 12:24] VITALS: BP 142/71; PULSE 61; TEMP 97.9; BMI 30.8
== END 2020-08-28 13:51 | disposition home or self-care (01) ==
LOC: JERFT 12:09
DX: M25.511 Pain in right shoulder (principal)
CPT/HCPCS: 73030-TC-RT-FY; 99284-25

== ENCOUNTER 2021-01-26 03:27 | Emergency (ER) | payer OTHER ==
[2021-01-26 03:40] VITALS: BP 150/93; PULSE 59; TEMP 97.9; BMI 31.5
== END 2021-01-26 06:21 | disposition left against medical advice (07) ==
LOC: JER 03:27
DX: E10.649 Type 1 diabetes mellitus with hypoglycemia without coma (principal)
CPT/HCPCS: 82962; 99283-25

== ENCOUNTER 2021-06-17 10:17 | Emergency (ER) | payer OTHER ==
[2021-06-17 10:23] VITALS: BP 162/62; PULSE 53; TEMP 97.8; BMI 30.8
[2021-06-17] MEDS ORDERED: METHOCARBAMOL 500 MG TABLET PO ONE (11:56)
[2021-06-17] MEDS ORDERED: KETOROLAC TROMETHAMINE 30 MG/1 ML VIAL IM ONE (11:56)
[2021-06-17] MEDS ORDERED: KETOROLAC TROMETHAMINE 15 MG/ML VIAL ONE (11:57)
[2021-06-17] MEDS ORDERED: KETOROLAC TROMETHAMINE 15 MG/ML VIAL IM ONE (11:57)
[2021-06-17] MEDS ORDERED: METHOCARBAMOL 500 MG TABLET ONE (11:57)
== END 2021-06-17 12:16 | disposition home or self-care (01) ==
LOC: JERFT 10:17
PROC: 3E0233Z Introduction of Anti-inflammatory into Muscle, Percutaneous Approach (ICD-10-PCS; principal; 2021-06-17)
DX: M62.838 Other muscle spasm (principal); S46.811A Strain of other muscles, fascia and tendons at shoulder and upper arm level, right arm, initial encounter; W37.8XXA Explosion and rupture of other pressurized tire, pipe or hose, initial encounter; Y92.9 Unspecified place or not applicable
CPT/HCPCS: 99284-25

== ENCOUNTER 2021-11-10 09:33 | Emergency (ER) | payer OTHER ==
[2021-11-10 09:44] VITALS: BP 128/58; PULSE 59; TEMP 97.9; BMI 29.8
== END 2021-11-10 11:18 | disposition home or self-care (01) ==
LOC: JERFT 09:33
DX: S93.401A Sprain of unspecified ligament of right ankle, initial encounter (principal); X50.9XXA Other and unspecified overexertion or strenuous movements or postures, initial encounter
CPT/HCPCS: 73610-TC-RT-FY; 73630-TC-RT-FY; 99283-25

== ENCOUNTER 2022-02-03 06:26 | Emergency (ER) | payer OTHER ==
[2022-02-03 06:34] VITALS: BP 125/71; PULSE 63; TEMP 97.5; BMI 30.8
[2022-02-03] MEDS ORDERED: ACETAMINOPHEN 500 MG TABLET (FP) PO ONE (07:24)
[2022-02-03] MEDS ORDERED: ACETAMINOPHEN 500 MG TABLET (FP) ONE (07:45)
== END 2022-02-03 08:35 | disposition home or self-care (01) ==
LOC: JER 06:26
DX: S90.121A Contusion of right lesser toe(s) without damage to nail, initial encounter (principal); W20.8XXA Other cause of strike by thrown, projected or falling object, initial encounter
CPT/HCPCS: 73660-TC-FY; 99283-25

== ENCOUNTER 2022-04-01 08:10 | Emergency (ER) | payer OTHER ==
[2022-04-01 08:19] VITALS: BP 123/70; PULSE 53; RESP 17; TEMP 97.8; BMI 30.2
== END 2022-04-01 10:35 | disposition home or self-care (01) ==
LOC: JERFT 08:10 → JER 08:10
DX: S93.401A Sprain of unspecified ligament of right ankle, initial encounter (principal); X50.9XXA Other and unspecified overexertion or strenuous movements or postures, initial encounter
CPT/HCPCS: 73610-TC-RT-FY; 73630-TC-RT-FY; 99283-25

== ENCOUNTER 2022-09-08 09:04 | Emergency (ER) | payer OTHER ==
[2022-09-08 09:19] VITALS: BP 171/67; PULSE 70; RESP 18; TEMP 97.7; BMI 30.1
[2022-09-08] MEDS: ALBUTEROL SO4 2.5/IPRATROPIUM 0.5 INH SOL 3 ML VIAL.NEB. NEB SCH (10:03)
== END 2022-09-08 10:30 | disposition home or self-care (01) ==
LOC: JERFT 09:04
PROC: 3E0F7GC Introduction of Other Therapeutic Substance into Respiratory Tract, Via Natural or Artificial Opening (ICD-10-PCS; principal; 2022-09-08)
DX: R05.2 Subacute cough (principal)
CPT/HCPCS: 0241U-QW; 71046-TC-FY; 99284-25

== ENCOUNTER 2022-09-29 03:25 | Emergency (ER) | payer OTHER ==
[2022-09-29 03:34] VITALS: BMI 30.1
[2022-09-29 06:30] VITALS: BP 143/61; PULSE 54; RESP 20; TEMP 97.2
== END 2022-09-29 08:08 | disposition left against medical advice (07) ==
LOC: JER 03:25
DX: E11.649 Type 2 diabetes mellitus with hypoglycemia without coma (principal)
CPT/HCPCS: 82962; 99283-25

== ENCOUNTER 2023-08-17 09:57 | Emergency (ER) | payer OTHER ==
[2023-08-17 10:04] VITALS: BP 114/42; PULSE 70; RESP 18; TEMP 97.9; BMI 30.7
[2023-08-17] MEDS ORDERED: IBUPROFEN 600 MG TABLET (FP) PO ONE ×2 (11:04→11:09)
== END 2023-08-17 11:12 | disposition home or self-care (01) ==
LOC: JER 09:57 → JERFT 09:57
DX: S93.492A Sprain of other ligament of left ankle, initial encounter (principal); M25.571 Pain in right ankle and joints of right foot; M25.471 Effusion, right ankle; X50.1XXA Overexertion from prolonged static or awkward postures, initial encounter; Y93.01 Activity, walking, marching and hiking
CPT/HCPCS: 73610-TC-RT-FY; 99283-25

== ENCOUNTER 2023-11-01 05:19 | Day surgery (SDC) | payer OTHER ==
[2023-10-27 13:32] VITALS: BMI 30.7
[2023-11-01] MEDS: TRYPAN BLUE 0.5 ML DISP.SYRIN IO ONE
[2023-11-01] MEDS ORDERED: CYCLOPENTOLATE HCL 1% OPHTH SOLN 2 ML BOTTLE ONE (06:19)
[2023-11-01] MEDS ORDERED: PHENYLEPHRINE 2.5% OPTHALMIC DROP 2ML BOTTLE ONE (06:20)
[2023-11-01] MEDS ORDERED: KETOROLAC TROMETHAMINE 0.5% EYE DROP 1 DROP DROPS ONE (06:20)
[2023-11-01] MEDS ORDERED: TROPICAMIDE 1% OPHTH SOLN 15 ML BOTTLE ONE (06:20)
[2023-11-01] MEDS ORDERED: OFLOXACIN 0.3% OPHTHALMIC SOLUTION 5 ML BOTTLE ONE (06:21)
[2023-11-01] MEDS ORDERED: PHENYLEPHRINE/KETOROLAC 4 ML VIAL IO ONE ×2 (07:22→07:57)
[2023-11-01] MEDS ORDERED: TETRACAINE 0.5% OPHTH SOLN 2 ML BOTTLE ONE (07:22)
[2023-11-01] MEDS ORDERED: LIDOCAINE HCL/PF 1% SDV 5ML VIAL ONE (07:22)
[2023-11-01] MEDS ORDERED: POVIDONE-IODINE 5% OPHTHALMIC PREP 30 ML SOLUTION ONE (07:22)
[2023-11-01] MEDS ORDERED: BSS (NA/CA/MG/K) BALANCED SALT SOLUTION OPHTH SOLN 15 ML BOTTLE ONE (07:22)
[2023-11-01] MEDS: TROPICAMIDE 1% OPHTH SOLN 15 ML BOTTLE OP SCH (08:30)
[2023-11-01] MEDS: PHENYLEPHRINE 2.5% OPHTH SOLN 15 ML BOTTLE OP SCH (08:30)
[2023-11-01] MEDS: OFLOXACIN 0.3% OPHTHALMIC SOLUTION 5 ML BOTTLE OP SCH (08:30)
[2023-11-01] MEDS: CYCLOPENTOLATE HCL 1% OPHTH SOLN 2 ML BOTTLE OP SCH (08:30)
[2023-11-01] MEDS: KETOROLAC TROMETHAMINE 0.5% EYE DROP 1 DROP DROPS OP SCH (08:30)
[2023-11-01 08:36] VITALS: RESP 20
[2023-11-01] MEDS ORDERED: MIDAZOLAM HCL 2 MG/2 ML SINGLE DOSE VIAL ONE (10:59)
[2023-11-01] MEDS: TETRACAINE 0.5% OPHTH SOLN 2 ML BOTTLE OS ONE ×2 (11:05)
[2023-11-01] MEDS: POVIDONE-IODINE 5% OPHTHALMIC PREP 30 ML SOLUTION OS ONE ×2 (11:08)
[2023-11-01] MEDS: LIDOCAINE HCL 1% PRESERVATIVE FREE - 30ML VIAL IO ONE ×2 (11:14)
[2023-11-01] MEDS: BSS (NA/CA/MG/K) BALANCED SALT SOLUTION OPHTH SOLN 15 ML BOTTLE IO ONE ×2 (11:15)
[2023-11-01] MEDS: CHONDROITIN SU A/HYALUR SOD 1 KIT IO ONE ×2 (11:16)
[2023-11-01] MEDS ORDERED: FENTANYL CITRATE/PF 50 MCG/ML VIAL ONE (11:17)
[2023-11-01] MEDS: PHENYLEPHRINE/KETOROLAC 4 ML VIAL IO ONE (11:21)
[2023-11-01] MEDS: EPINEPHrine/PF 1 MG/1 ML (1:1,000) AMPULE IO ONE ×2 (11:21)
[2023-11-01] MEDS ORDERED: ACETAMINOPHEN 500 MG TABLET (FP) ONE (11:58)
[2023-11-01 13:44] VITALS: TEMP 97.8
[2023-11-01] MEDS: ACETAMINOPHEN 325 MG TABLET (FP) PO PRN (13:45)
[2023-11-01 13:49] VITALS: BP 140/74; PULSE 65
== END 2023-11-01 13:50 | disposition home or self-care (01) ==
LOC: JASU-SURG 05:19
PROVIDERS: ATTEND Ophthalmology
PROC: 08RK3JZ Replacement of Left Lens with Synthetic Substitute, Percutaneous Approach (ICD-10-PCS; principal; 2023-11-01 10:00)
DX: H26.9 Unspecified cataract (principal)
CPT/HCPCS: 82962; J1097; V2632

== ENCOUNTER 2023-11-15 04:19 | Day surgery (SDC) | payer OTHER ==
[2023-11-10 19:05] VITALS: BMI 30.7
[~2023-11-15 04:19] MED LIST: ACETAMINOPHEN 325 MG TABLET (FP) PO PRN; CYCLOPENTOLATE HCL 1% OPHTH SOLN 2 ML BOTTLE OP SCH; KETOROLAC TROMETHAMINE 0.5% EYE DROP 1 DROP DROPS OP SCH; OFLOXACIN 0.3% OPHTHALMIC SOLUTION 5 ML BOTTLE OP SCH; PHENYLEPHRINE 2.5% OPHTH SOLN 15 ML BOTTLE OP SCH; TROPICAMIDE 1% OPHTH SOLN 15 ML BOTTLE OP SCH
[2023-11-15] MEDS ORDERED: KETOROLAC TROMETHAMINE 0.5% EYE DROP 1 DROP DROPS ONE (06:26)
[2023-11-15] MEDS ORDERED: CYCLOPENTOLATE HCL 1% OPHTH SOLN 2 ML BOTTLE ONE (06:26)
[2023-11-15] MEDS ORDERED: TROPICAMIDE 1% OPHTH SOLN 15 ML BOTTLE ONE (06:26)
[2023-11-15] MEDS ORDERED: PHENYLEPHRINE 2.5% OPTHALMIC DROP 2ML BOTTLE ONE (06:26)
[2023-11-15] MEDS ORDERED: OFLOXACIN 0.3% OPHTHALMIC SOLUTION 5 ML BOTTLE ONE (06:26)
[2023-11-15] MEDS: PHENYLEPHRINE 2.5% OPHTH SOLN 15 ML BOTTLE OD ONE ×3 (06:45→06:55)
[2023-11-15] MEDS: OFLOXACIN 0.3% OPHTHALMIC SOLUTION 5 ML BOTTLE OD ONE ×3 (06:45→06:55)
[2023-11-15] MEDS: KETOROLAC TROMETHAMINE 0.5% EYE DROP 1 DROP DROPS OD ONE ×3 (06:45→06:55)
[2023-11-15] MEDS: TROPICAMIDE 1% OPHTH SOLN 15 ML BOTTLE OD ONE ×3 (06:45→06:55)
[2023-11-15] MEDS: CYCLOPENTOLATE HCL 1% OPHTH SOLN 2 ML BOTTLE OD ONE ×3 (06:45→06:55)
[2023-11-15 06:55] VITALS: RESP 18
[2023-11-15] MEDS ORDERED: LIDOCAINE HCL/PF 1% SDV 5ML VIAL ONE (07:25)
[2023-11-15] MEDS ORDERED: VANCOMYCIN 500 MG VIAL (RESTRICTED TO ID ONLY) ONE (07:25)
[2023-11-15] MEDS ORDERED: LIDOCAINE HCL/PF 2% SDV 5ML VIAL ONE (07:26)
[2023-11-15] MEDS ORDERED: BUPIVACAINE HCL/PF 0.75% 10 ML VIAL ONE (07:26)
[2023-11-15] MEDS ORDERED: PHENYLEPHRINE/KETOROLAC 4 ML VIAL IO ONE (07:27)
[2023-11-15] MEDS ORDERED: POVIDONE-IODINE 5% OPHTHALMIC PREP 30 ML SOLUTION ONE (07:27)
[2023-11-15] MEDS ORDERED: PROPOFOL 20 ML ONE (07:59)
[2023-11-15] MEDS ORDERED: MIDAZOLAM HCL 2 MG/2 ML SINGLE DOSE VIAL ONE (08:00)
[2023-11-15] MEDS: BUPIVACAINE HCL/PF 0.75% 10 ML VIAL RB ONE (08:09)
[2023-11-15] MEDS: LIDOCAINE HCL/PF 2% SDV 5ML VIAL INF ONE (08:09)
[2023-11-15] MEDS: POVIDONE-IODINE 5% OPHTHALMIC PREP 30 ML SOLUTION OD ONE (08:12)
[2023-11-15] MEDS: BSS (NA/CA/MG/K) BALANCED SALT SOLUTION OPHTH SOLN 15 ML BOTTLE IO ONE (08:21)
[2023-11-15] MEDS: LIDOCAINE HCL 1% PRESERVATIVE FREE - 30ML VIAL IO ONE (08:22)
[2023-11-15] MEDS: CHONDROITIN SU A/HYALUR SOD 1 KIT IO ONE (08:24)
[2023-11-15] MEDS: PHENYLEPHRINE/KETOROLAC 4 ML VIAL IO ONE ×2 (08:31)
[2023-11-15] MEDS: VANCOMYCIN 500 MG VIAL (RESTRICTED TO ID ONLY) IVPB ONE (08:41)
[2023-11-15 10:41] VITALS: BP 134/70; PULSE 70; TEMP 97.8
== END 2023-11-15 09:30 | disposition home or self-care (01) ==
LOC: JASU-SURG 04:19
PROVIDERS: ATTEND Ophthalmology
PROC: 08RJ3JZ Replacement of Right Lens with Synthetic Substitute, Percutaneous Approach (ICD-10-PCS; principal; 2023-11-15 08:00)
DX: H26.9 Unspecified cataract (principal)
CPT/HCPCS: 82962; J1097; V2632

== ENCOUNTER 2023-12-26 09:17 | Emergency (ER) | payer OTHER ==
[2023-12-26 09:21] VITALS: BP 114/63; PULSE 77; RESP 18; TEMP 97.6; BMI 30.1
== END 2023-12-26 11:26 | disposition home or self-care (01) ==
LOC: JERFT 09:17
DX: M25.562 Pain in left knee (principal); W22.8XXA Striking against or struck by other objects, initial encounter
CPT/HCPCS: 73562-TC-LT-FY; 99283-25

== ENCOUNTER 2024-01-11 04:22 | Day surgery (SDC) | payer OTHER ==
[2024-01-03 16:49] VITALS: BMI 30.1
[2024-01-11] MEDS ORDERED: ACETAMINOPHEN 500 MG TABLET (FP) PO PRN (08:59)
[2024-01-11] MEDS ORDERED: SODIUM CHLORIDE 0.9% P/F 10 ML VIAL IJ ONE (16:22)
[2024-01-11 16:28] VITALS: RESP 16
[2024-01-11] MEDS: LIDOCAINE 1% P/F 10 MG/ML VIAL SNB ONE (16:49)
[2024-01-11] MEDS: DEXAMETHASONE SOD PHOSPHATE 10 MG/1 ML VIAL IM ONE (16:50)
[2024-01-11] MEDS: IOHEXOL 180 MG/1 ML ML IJ ONE (16:51)
[2024-01-11 17:03] VITALS: BP 146/62; PULSE 68; TEMP 97.6
== END 2024-01-11 17:20 | disposition home or self-care (01) ==
LOC: JASU-SURG 04:22
PROVIDERS: ATTEND Pain Medicine Pain Medicine
PROC: 3E0R3BZ Introduction of Anesthetic Agent into Spinal Canal, Percutaneous Approach (ICD-10-PCS; 2024-01-11)
PROC: 3E0R33Z Introduction of Anti-inflammatory into Spinal Canal, Percutaneous Approach (ICD-10-PCS; principal; 2024-01-11 17:30)
DX: M54.16 Radiculopathy, lumbar region (principal)
CPT/HCPCS: 76000-TC-FY; J1100

== ENCOUNTER 2024-02-13 15:17 | Emergency (ER) | payer OTHER ==
[2024-02-13 15:32] VITALS: BP 114/60; PULSE 64; RESP 16; TEMP 98.2; BMI 31.5
[2024-02-13] MEDS ORDERED: IBUPROFEN 600 MG TABLET (FP) PO ONE (15:40)
[2024-02-13] MEDS: IBUPROFEN 600 MG TABLET (FP) PO ONE (15:41)
== END 2024-02-13 16:59 | disposition home or self-care (01) ==
LOC: FER 15:17
DX: S93.491A Sprain of other ligament of right ankle, initial encounter (principal); X50.1XXA Overexertion from prolonged static or awkward postures, initial encounter
CPT/HCPCS: 73610-TC-RT-FY; 73630-TC-RT-FY; 99283-25

== ENCOUNTER 2024-05-06 09:14 | Emergency (ER) | payer OTHER ==
[2024-05-06 10:14] VITALS: BP 146/79; PULSE 70; RESP 19; TEMP 97.6; BMI 29.4
[2024-05-06] MEDS ORDERED: KETOROLAC TROMETHAMINE 30 MG/1 ML VIAL ONE (10:38)
[2024-05-06] MEDS: KETOROLAC TROMETHAMINE 30 MG/1 ML VIAL IM ONE (10:58)
[2024-05-06 11:01] LABS: BASO % 1.2 % (0-2.0); EOS % 2.4 % (0-4.5); HEMATOCRIT 41.9 % (35.4-49); HEMOGLOBIN 13.6 GM/dL (11.7-16.9); LYMPH % 22.8 % (8-40); MCH 27.7 pg (25.7-33.7); MCHC 32.4 g/dl (32.0-35.9); MEAN CELL VOLUME 85.7 fl (80-96); MONO % 9.9 % (3.8-10.2); NEUT % 63.7 % (42.8-82.8); PH,URINE 5.5 (5.0-8.0); PLATELET COUNT 272 10^3/uL (134-434); RBC 4.89 M/mm3 (4.00-5.60); RDW 14.9 % (11.9-15.9); URINE APPEARANCE CLEAR; URINE BILIRUBIN NEGATIVE (NEGATIVE); URINE COLOR YELLOW; URINE GLUCOSE (UA) 3+ (NEGATIVE); URINE KETONE NEGATIVE (NEGATIVE); URINE LEUK ESTERASE NEGATIVE (NEGATIVE); URINE NITRITE NEGATIVE (NEGATIVE); URINE PROTEIN NEGATIVE (NEGATIVE); URINE UROBILINOGEN 0.2 mg/dL (0.2-1.0); WHITE BLOOD COUNT 7.5 K/mm3 (4.0-10.0)
[2024-05-06 11:22] LABS: POTASSIUM 4.7 mmol/L (3.5-5.1)
[2024-05-06 11:24] LABS: CALCIUM 9.1 mg/dL (8.5-10.1)
[2024-05-06 11:25] LABS: BLOOD UREA NITROGEN 32.5 mg/dL (7-18)
[2024-05-06 11:28] LABS: CREATININE 2.8 mg/dL (0.55-1.3)
[2024-05-06 11:29] LABS: BILIRUBIN,TOTAL 0.4 mg/dL (0.2-1)
[2024-05-06] MEDS ORDERED: oxyCODONE HCL 5 MG TABLET ONE (12:33)
[2024-05-06] MEDS: oxyCODONE HCL 5 MG TABLET PO ONE (12:44)
== END 2024-05-06 14:22 | disposition home or self-care (01) ==
LOC: JERFT 09:14
PROC: 3E0133Z Introduction of Anti-inflammatory into Subcutaneous Tissue, Percutaneous Approach (ICD-10-PCS; principal; 2024-05-06)
DX: S22.42XA Multiple fractures of ribs, left side, initial encounter for closed fracture (principal); S32.018A Other fracture of first lumbar vertebra, initial encounter for closed fracture; S32.028A Other fracture of second lumbar vertebra, initial encounter for closed fracture; I31.39 Other pericardial effusion (noninflammatory); J84.10 Pulmonary fibrosis, unspecified; W10.8XXA Fall (on) (from) other stairs and steps, initial encounter
CPT/HCPCS: 36415; 71250-TC; 74176-TC; 80053; 81003; 85025; 99284-25

== ENCOUNTER 2024-09-24 09:48 | Emergency (ER) | payer OTHER ==
[2024-09-24] MEDS ORDERED: IBUPROFEN 600 MG TABLET (FP) PO ONE (10:17)
[2024-09-24] MEDS: IBUPROFEN 600 MG TABLET (FP) PO ONE (10:18)
[2024-09-24 13:01] VITALS: BP 119/60; PULSE 66; RESP 18; TEMP 97.9; BMI 34.4
== END 2024-09-24 12:18 | disposition home or self-care (01) ==
LOC: JERFT 09:48
PROC: 2W3SX1Z Immobilization of Right Foot using Splint (ICD-10-PCS; principal; 2024-09-24)
DX: S92.344A Nondisplaced fracture of fourth metatarsal bone, right foot, initial encounter for closed fracture (principal); W20.8XXA Other cause of strike by thrown, projected or falling object, initial encounter
CPT/HCPCS: 29515; 73630-TC-RT-FY; 99283-25